=== PATIENT | male | born 1970 | race Caucasian/White ===

== ENCOUNTER → 2020-06-09 | Outpatient (CLI) | payer OTHER ==
--- NOTE | 2020-06-09 09:16 | PFTRPT ---
Height: 68.00 Inches Weight: 155.00 Lbs BSA: 1.83 Diagnosis: R06.00 DATE: 06/09/2020 ORDERING PHYSICIAN: ROCKY Robins Pre and post bronchodilator studies have excellent technical quality. Forced vital capacity is normal. FEV1 is in proportion. Obstructive index is therefore normal. Expiratory limit of the flow-volume loop is normal. No significant bronchodilator response is identified. Total lung capacity is normal. Residual volume is in proportion. Diffusing capacity is normal. No hemoglobin available for correction. Airway resistance and conductance are normal. IMPRESSION: Normal study. MTDD
== END ==
LOC: M CARPUL 08:48
PROVIDERS: ATTEND Physician Assistant Medical
DX: R06.00 Dyspnea, unspecified (principal)